=== PATIENT | male | born 1945 | race Caucasian/White ===

== ENCOUNTER 2017-07-05 09:16 | Outpatient (CLI) | payer MEDICARE ==
--- NOTE | 2017-07-05 11:24 | CT ---
CT CHEST NONCONTRAST: History: Left lung mass. Comparison: 11-07-16, 04-17-16 FINDINGS: The well circumscribed lobular mass at the left infrahilar level is again demonstrated. It is 2.5 cm length x 2.5 cm greatest width x 2.3 cm depth, unchanged from the previous study. No new parenchymal lung masses are evident. There is prominent calcification in the arterial structures. Small hiatal hernia is apparent. Inferio r most image shows a tiny calcification at the lateral aspect of the right kidney, presumed within a nondilated rolando. IMPRESSION: 1. Stable CT appearance of the left infrahilar lung mass dating back to 04-17-16. 2. Atherosclerosis. 3. Tiny nonobstructing right renal calculus. 4. Small hiatal hernia. POS: [facility]
== END 2017-07-05 09:17 | disposition home or self-care (01) ==
LOC: CT 09:16
PROVIDERS: ATTEND Internal Medicine Critical Care Medicine
DX: R91.1 Solitary pulmonary nodule (principal); R91.8 Other nonspecific abnormal finding of lung field; I70.90 Unspecified atherosclerosis; K44.9 Diaphragmatic hernia without obstruction or gangrene
CPT/HCPCS: 71250